=== PATIENT | male | born 1955 | race Caucasian/White ===

== ENCOUNTER 2023-02-16 18:46 | Emergency (ER) | payer MEDICARE ==
[2023-02-16] MEDS ORDERED: Amoxicillin 500 MG Cap ONE (19:30)
== END 2023-02-16 19:45 | disposition home or self-care (01) ==
LOC: LB.ED 18:46
DX: S60.450A Superficial foreign body of right index finger, initial encounter (principal); W45.8XXA Other foreign body or object entering through skin, initial encounter
CPT/HCPCS: 99282; A9270